=== PATIENT | male | born 1970 | race Native Hawaiian/Other Pacific Islander ===

== ENCOUNTER 2020-02-28 10:38 | Outpatient (CLI) | payer OTHER ==
[2020-02-28 10:58] LABS: PLATELET COUNT 217 K/uL (142-355)
[2020-02-28 11:19] LABS: POTASSIUM 4.2 mmol/L (3.6-5.2)
== END 2020-02-28 19:53 | disposition home or self-care (01) ==
LOC: LABW 10:38
PROVIDERS: Nurse Practitioner Family
DX: I10 Essential (primary) hypertension (principal); R53.83 Other fatigue; Z79.899 Other long term (current) drug therapy; Z13.220 Encounter for screening for lipoid disorders; Z12.5 Encounter for screening for malignant neoplasm of prostate
CPT/HCPCS: 36415; 80053; 80061; 83036; 84443; 84550; 85027